=== PATIENT | male | born 1985 | race Two or more races ===

== ENCOUNTER 2024-11-17 22:20 | Emergency (ER) | payer OTHER ==
[~2024-11-17] VITALS: Ht 180 cm; Wt 95.7 kg
[2024-11-18 00:48] VITALS: PULSE 68; RESP 18; TEMP 97.7
[2024-11-18 00:50] VITALS: BP 129/89; PULSE 68; RESP 18; TEMP 97.7; O2SAT 99
== END 2024-11-18 00:56 | disposition home or self-care (01) ==
LOC: FSED 22:39
DX: M79.604 Pain in right leg (principal); Z79.01 Long term (current) use of anticoagulants; Z86.718 Personal history of other venous thrombosis and embolism
CPT/HCPCS: 93970; 99284